=== PATIENT | male | born 1960 | race Two or more races ===

== ENCOUNTER → 2017-08-07 | Outpatient (CLI) | payer OTHER ==
[~2017-08-07] VITALS: Ht 182.9 cm; Wt 93.0 kg
[~2017-08-07] MED LIST: BASAGLAR K100 UNIT/1 SC; HARVONI 90-4001 EACH PO; NOVOLIN,HU100 UNITS1 SC; OXYCODONE HCL10 MG PO
== END | disposition home or self-care (01) ==
LOC: OPR 10:00 → AMB 10:00
PROVIDERS: Internal Medicine Gastroenterology
DX: Z12.11 Encounter for screening for malignant neoplasm of colon (principal); B19.20 Unspecified viral hepatitis C without hepatic coma; K86.9 Disease of pancreas, unspecified; R63.4 Abnormal weight loss; R93.3 Abnormal findings on diagnostic imaging of other parts of digestive tract; G89.4 Chronic pain syndrome; R76.8 Other specified abnormal immunological findings in serum; R91.8 Other nonspecific abnormal finding of lung field; Z79.82 Long term (current) use of aspirin; E11.9 Type 2 diabetes mellitus without complications; Z79.4 Long term (current) use of insulin
CPT/HCPCS: 82948; 88305; 93005; 94640; J0330; J0744; J1100; J2250; J2405; J3010